=== PATIENT | female | born 1945 | race Caucasian/White ===

== ENCOUNTER 2017-01-22 13:00 | Emergency (ER) | payer MEDICARE ==
[2017-01-22 14:07] LABS: BASOPHILS 0.5 % (0-2); EOSINOPHILS 5.8 % (0-7); HEMATOCRIT 41.2 % (36.0-48.0); HEMOGLOBIN 13.5 g/dL (12-16); IMMATURE GRANULOCYTES 0.2 % (0-5); LYMPHOCYTES 27.7 % (15-50); MCH 28.4 pg (26.0-34.0); MCHC 32.8 g/dL (31.0-37.0); MCV 86.7 fL (80.0-100.0); MEAN PLATELET VOLUME 9.3 fL (7.4-10.4); MONOCYTES 11.1 % (2-11); NEUTROPHILS 54.7 % (40-80); PLATELET COUNT 245 10x3/uL (130-400); RBC 4.75 10x6/uL (4.00-5.40); RDW 13.9 % (11.5-14.5); WBC 10.5 10x3/uL (4.8-10.8)
[2017-01-22 14:30] LABS: ALBUMIN 3.4 g/dL (3.4-5.0); ALKALINE PHOSPHATASE 90 U/L (46-116); ALT (SGPT) 30 U/L (10-68); BILIRUBIN - TOTAL 0.25 mg/dL (0.2-1.3); CALC OSMOLALITY 292 mosm/kg (275-300); CALCIUM 9.2 mg/dL (8.5-10.1); CARBON DIOXIDE 24.8 mmol/L (21.0-32.0); CHLORIDE - SERUM 104 mmol/L (98-107); CREATININE - SERUM 1.1 mg/dL (0.6-1.3); POTASSIUM - SERUM 4.1 mmol/L (3.5-5.1); PROTEIN - SERUM 7.2 g/dL (6.4-8.2); SODIUM 138 mmol/L (136-145); UREA NITROGEN 21 mg/dL (7-18); eGFR NON AFRICAN AMERICAN 51 mL/min (90-120)
[2017-01-22 14:31] LABS: GLUCOSE 343 mg/dL (74-106)
[2017-01-22 14:38] LABS: TROPONIN-I < 0.017 ng/mL (0.000-0.060)
[2017-01-22 15:29] LABS: APPEARANCE CLEAR (CLEAR); BILIRUBIN NEGATIVE (NEGATIVE); COLOR YELLOW (YELLOW); GLUCOSE 1000 mg/dL (NEGATIVE); KETONE NEGATIVE (NEGATIVE); LEUKOCYTE ESTERASE NEGATIVE (NEGATIVE); NITRITE NEGATIVE (NEGATIVE); PROTEIN NEGATIVE (NEGATIVE); UROBILINOGEN NORMAL (NORMAL)
[2017-01-22 15:33] LABS: HEMOGLOBIN A1C 9.6 % (4.8-6.0)
== END 2017-01-22 16:07 | disposition home or self-care (01) ==
LOC: D.ER 13:00
PROVIDERS: Physician Assistant
DX: R07.9 Chest pain, unspecified (principal); E11.9 Type 2 diabetes mellitus without complications; Z79.4 Long term (current) use of insulin; L01.00 Impetigo, unspecified

== ENCOUNTER 2017-09-17 08:58 | Emergency (ER) | payer MEDICARE | END 2017-09-17 09:41 | disposition home or self-care (01) | LOC: D.ER 08:58 | DX: H00.12 Chalazion right lower eyelid (principal) ==

== ENCOUNTER 2017-11-26 12:57 | Emergency (ER) | payer MEDICARE | END 2017-11-26 14:29 | disposition home or self-care (01) | LOC: D.ER 12:57 | DX: H10.33 Unspecified acute conjunctivitis, bilateral (principal); H00.19 Chalazion unspecified eye, unspecified eyelid; E11.69 Type 2 diabetes mellitus with other specified complication ==